=== PATIENT | male | born 1960 | race Caucasian/White ===

== ENCOUNTER 2017-12-18 18:22 | Inpatient (IN) | payer BC, OTHER ==
[2017-12-18] MEDS ORDERED: PROPOFOL 200 MG/20 ML AMP IV (18:30)
[2017-12-18] MEDS: HYDROmorphone HCL PF 2 MG/ML VIAL IV PUSH (18:35)
[2017-12-18] MEDS: SODIUM CHLORIDE 0.9% FLUSH 10 ML FLUSH IVF (18:36)
[2017-12-18 18:52] LABS: AUTOMATED NEUTROPHIL # 5.1 TH/MM3 (1.8-7.7); BASOPHIL % 0.5 % (0.0-2.0); EOSINOPHIL # 0.1 TH/MM3 (0-0.4); EOSINOPHIL % 1.3 % (0.0-4.0); HEMATOCRIT 39.6 % (39.0-51.0); HEMO FLAGS DIFF FINAL; HEMOGLOBIN 13.3 GM/DL (13.0-17.0); LYMPH % 25.3 % (9.0-44.0); MEAN CELL VOLUME 96.6 FL (80.0-100.0); MEAN CORPUSCULAR HEMOGLOBIN 32.4 PG (27.0-34.0); MEAN CORPUSCULAR HGB CONC 33.6 % (32.0-36.0); MEAN PLATELET VOLUME 9.7 FL (7.0-11.0); MONO % 7.5 % (0.0-8.0); MONOCYTE # 0.6 TH/MM3 (0-0.9); NEUT % 65.4 % (16.0-70.0); PLATELET COUNT 197 TH/MM3 (150-450); RED CELL DISTRIBUTION WIDTH 12.7 % (11.6-17.2); WHITE BLOOD COUNT 7.8 TH/MM3 (4.0-11.0)
[2017-12-18 19:14] LABS: ALKALINE PHOSPHATASE 56 U/L (45-117); ALT (GPT) 49 U/L (12-78); TOTAL BILIRUBIN ADULT 0.5 MG/DL (0.2-1.0); TOTAL PROTEIN 7.5 GM/DL (6.4-8.2)
[2017-12-18 19:16] LABS: ANION GAP 7 MEQ/L (5-15); AST (GOT) 50 U/L (15-37); BICARBONATE 28.2 MEQ/L (21.0-32.0); BLOOD UREA NITROGEN 21 MG/DL (7-18); CALCIUM 9.1 MG/DL (8.5-10.1); CHLORIDE 108 MEQ/L (98-107); CREATININE 1.15 MG/DL (0.60-1.30); GLOMERULAR FILTRATION RATE 66 ML/MIN (>89); GLUCOSE,RANDOM 113 MG/DL (74-106); SODIUM (NA) 143 MEQ/L (136-145)
[2017-12-18] MEDS ORDERED: ONDANSETRON HCL 4 MG/2 ML VIAL IV PUSH (21:00)
[2017-12-18] MEDS: MORPHINE SULFATE 4 MG/ML INJ IV PUSH (21:00)
[2017-12-18] MEDS: CEPHALEXIN MONOHYDRATE 500 MG CAP PO (21:19)
[2017-12-18] MEDS: TETANUS/DIPHTHERIA TOXOID ADULT 0.5 ML VIAL IM (21:20)
[2017-12-18 21:26] LABS: APTT (PATIENT) 19.2 SEC (24.3-30.1); INTERNATIONAL NORMALIZED RATIO 1.1 RATIO; PROTHROMBIN TIME - PATIENT 10.9 SEC (9.8-11.6)
[2017-12-18] MEDS ORDERED: LACTULOSE SYRUP 20 GM/30 ML CUP PO (22:30)
[2017-12-18] MEDS ORDERED: SENNOSIDES 8.6 MG TAB PO (22:30)
[2017-12-18] MEDS ORDERED: ACETAMINOPHEN 325 MG TAB PO (22:30)
[2017-12-18] MEDS ORDERED: BISACODYL 10 MG SUPP RECTAL (22:30)
[2017-12-18] MEDS ORDERED: SODIUM CHLORIDE 0.9% FLUSH 10 ML FLUSH IV FLUSH (22:30)
[2017-12-18] MEDS: SODIUM CHLOR 0.9% 1000 ML INJ 1,000 ML IV (23:48)
[2017-12-19] MEDS: MORPHINE SULFATE 4 MG/ML INJ IV PUSH (03:26)
[2017-12-19] MEDS: ACETAMINOPHEN/HYDROcodone 325 MG/5 MG TAB PO ×3 (05:09→21:02)
[2017-12-19] MEDS: METOCLOPRAMIDE HCL 10 MG/2 ML VIAL IV PUSH (06:41)
[2017-12-19 07:48] LABS: AUTOMATED NEUTROPHIL # 7.9 TH/MM3 (1.8-7.7); BASOPHIL % 0.1 % (0.0-2.0); HEMATOCRIT 37.1 % (39.0-51.0); HEMO FLAGS DIFF FINAL; HEMOGLOBIN 12.5 GM/DL (13.0-17.0); LYMPH % 5.9 % (9.0-44.0); LYMPHOCYTE # 0.5 TH/MM3 (1.0-4.8); MEAN CELL VOLUME 95.8 FL (80.0-100.0); MEAN CORPUSCULAR HEMOGLOBIN 32.3 PG (27.0-34.0); MEAN CORPUSCULAR HGB CONC 33.7 % (32.0-36.0); MEAN PLATELET VOLUME 9.3 FL (7.0-11.0); MONO % 6.2 % (0.0-8.0); MONOCYTE # 0.6 TH/MM3 (0-0.9); NEUT % 87.8 % (16.0-70.0); PLATELET COUNT 186 TH/MM3 (150-450); RED BLOOD COUNT 3.88 MIL/MM3 (4.50-5.90); RED CELL DISTRIBUTION WIDTH 12.4 % (11.6-17.2); WHITE BLOOD COUNT 9.1 TH/MM3 (4.0-11.0)
[2017-12-19] MEDS: SODIUM CHLOR 0.9% 1000 ML INJ 1,000 ML IV ×2 (08:28→18:28)
[2017-12-19] MEDS: DOCUSATE SODIUM 50 MG/SENNA 8.6 MG TAB PO ×2 (08:31→20:01)
[2017-12-19] MEDS: SODIUM CHLORIDE 0.9% FLUSH 10 ML FLUSH IV FLUSH ×2 (08:31→20:02)
[2017-12-19 08:36] LABS: ALBUMIN 3.8 GM/DL (3.4-5.0); ALKALINE PHOSPHATASE 54 U/L (45-117); ALT (GPT) 48 U/L (12-78); ANION GAP 7 MEQ/L (5-15); AST (GOT) 53 U/L (15-37); BICARBONATE 28.5 MEQ/L (21.0-32.0); BLOOD UREA NITROGEN 22 MG/DL (7-18); CHLORIDE 106 MEQ/L (98-107); CREATININE 1.01 MG/DL (0.60-1.30); GLOMERULAR FILTRATION RATE 76 ML/MIN (>89); GLUCOSE,RANDOM 126 MG/DL (74-106); POTASSIUM 3.8 MEQ/L (3.5-5.1); SODIUM (NA) 141 MEQ/L (136-145); TOTAL BILIRUBIN ADULT 0.6 MG/DL (0.2-1.0); TOTAL PROTEIN 6.9 GM/DL (6.4-8.2)
[2017-12-19] MEDS: GENTAMICIN SULFATE 80 MG/2 ML VIAL (10:28)
[2017-12-19] MEDS ORDERED: ACETAMINOPHEN 1000 MG/100 ML 100 ML IV (10:30)
[2017-12-19] MEDS ORDERED: ceFAZolin INJ 1,000 MG VIAL IV (12:00)
[2017-12-19] MEDS ORDERED: PROPOFOL 200 MG/20 ML AMP IV (12:00)
[2017-12-19] MEDS ORDERED: DEXAMETHASONE SOD PHOS 4 MG/ML VIAL IV (12:00)
[2017-12-19] MEDS ORDERED: GLYCOPYRROLATE 1 MG/5 ML SYRINGE IV PUSH (12:00)
[2017-12-19] MEDS ORDERED: ONDANSETRON HCL 4 MG/2 ML VIAL IV (12:00)
[2017-12-19] MEDS ORDERED: LIDOCAINE HCL 1% PF 5 ML SYRINGE OTHER (12:00)
[2017-12-19] MEDS ORDERED: NEOSTIGMINE 5 MG/5 ML SYRINGE IV PUSH (12:00)
[2017-12-19] MEDS ORDERED: ROCURONIUM INJ 50 MG/5 ML SYRINGE IV PUSH (12:00)
[2017-12-19] MEDS: ceFAZolin 2 GM PREMIX 50 ML IV (13:54)
[2017-12-19] MEDS: VANCOMYCIN HCL 1000 MG VIAL (14:05)
[2017-12-19] MEDS: DEXT 5%-NACL 0.45% 1000 ML INJ 1,000 ML IV (14:47)
[2017-12-19] MEDS ORDERED: ONDANSETRON HCL 4 MG/2 ML VIAL IVP (15:00)
[2017-12-19] MEDS ORDERED: diphenhydrAMINE HCL 25 MG CAP PO (15:00)
[2017-12-19] MEDS ORDERED: NURSING INFORMATION XX (15:00)
[2017-12-19] MEDS ORDERED: NALOXONE HCL 0.4 MG/ML AMP IV PUSH (15:00)
[2017-12-19] MEDS ORDERED: MORPHINE SULFATE 4 MG/ML INJ IV PUSH (15:00)
[2017-12-19] MEDS ORDERED: Post-op Orders (for Pharmacy) XX (15:00)
[2017-12-19] MEDS ORDERED: MAGNESIUM HYDROXIDE SUSP 30 ML CUP PO (15:00)
[2017-12-19] MEDS ORDERED: PHARMACY INFORMATION XX (15:00)
[2017-12-19] MEDS ORDERED: DO NOT ADM ANY ANTICOAGULANT DRUGS (15:15)
[2017-12-19] MEDS ORDERED: *RESP: ALBUTEROL 2.5 MG/3 ML NEB (PRN) PERIprocedural Use ONLY NEB (15:22)
[2017-12-19] MEDS ORDERED: MIDAZOLAM HCL 2 MG/2 ML VIAL (15:24)
[2017-12-19] MEDS ORDERED: SUGAMMADEX SODIUM 200 MG/2 ML VIAL IV PUSH (15:24)
[2017-12-19] MEDS ORDERED: VANCOMYCIN HCL 1000 MG VIAL IV (15:36)
[2017-12-19] MEDS: BACITRACIN/POLYMYXIN B 15 GM TUBE TOPICAL (20:01)
[2017-12-19] MEDS: MAGNESIUM HYDROXIDE SUSP 30 ML CUP PO (20:02)
[2017-12-20] MEDS: DEXT 5%-NACL 0.45% 1000 ML INJ 1,000 ML IV ×2 (00:47→08:16)
[2017-12-20] MEDS: SODIUM CHLOR 0.9% 1000 ML INJ 1,000 ML IV ×2 (04:28→13:06)
[2017-12-20] MEDS: ACETAMINOPHEN/HYDROcodone 325 MG/5 MG TAB PO ×2 (05:23→16:32)
[2017-12-20 05:57] LABS: REVIEW FLAG FINAL
[2017-12-20 05:57] LABS: HEMOGLOBIN 11.4 GM/DL (13.0-17.0)
[2017-12-20] MEDS: DOCUSATE SODIUM 50 MG/SENNA 8.6 MG TAB PO (08:15)
[2017-12-20] MEDS: MULTIVITAMINS/MINERALS THERAPEUTIC TAB PO (08:15)
[2017-12-20] MEDS: SODIUM CHLORIDE 0.9% FLUSH 10 ML FLUSH IV FLUSH (08:16)
[2017-12-20] MEDS: BACITRACIN/POLYMYXIN B 15 GM TUBE TOPICAL (08:16)
[2017-12-20] MEDS: ENOXAPARIN SODIUM 40 MG/0.4 ML SYRINGE SQ (13:05)
== END 2017-12-20 17:27 | disposition home health service (06) | DRG 494 ==
LOC: N03B 12-19 05:00 → NEPE 18:22 → NEDA 22:30 → N06B 12-19 16:18
PROC: 0QSH04Z Reposition Left Tibia with Internal Fixation Device, Open Approach (ICD-10-PCS; principal; 2017-12-19 13:22)
DX: S82.202A Unspecified fracture of shaft of left tibia, initial encounter for closed fracture (principal); I10 Essential (primary) hypertension; E86.0 Dehydration; E78.5 Hyperlipidemia, unspecified; I25.10 Atherosclerotic heart disease of native coronary artery without angina pectoris; S82.402A Unspecified fracture of shaft of left fibula, initial encounter for closed fracture; V29.9XXA Motorcycle rider (driver) (passenger) injured in unspecified traffic accident, initial encounter
CPT/HCPCS: 70450; 72125; 73110; 73130; 73590; 76000; 80053; 85014; 85018; 85025; 85610; 85730; 90714; 93005; 94150; 97162-GP; 97530-GP